=== PATIENT | female | born 1995 | race Caucasian/White ===

== ENCOUNTER 2021-10-19 20:17 | Observation (INO) | payer SELFPAY ==
--- NOTE | ~2021-10-19 | XR_ITS ---
EXAMINATION: XR chest 2V Exam Date/Time: 10/19/2021 22:55 CDT HISTORY: possible foreign body Comparison: None available. RESULT: Lines, tubes, and devices: None. Lungs and pleura: Clear. Cardiomediastinal silhouette: Normal. Other: No acute osseous or upper abdominal finding. IMPRESSION: No acute cardiopulmonary process. No radiopaque foreign body. Reviewed, dictated and finalized at location K.
--- NOTE | ~2021-10-19 | XR_ITS ---
EXAM: XR soft tissue neck DATE: 10/19/2021 23:03 HISTORY: possible foreign body . COMPARISON: None available. FINDINGS: Normal mineralization. No fracture or dislocation. No subcutaneous emphysema. 16 mm linear radiopacity seen best in the AP view projecting over the right lateral vestibule. 6 mm linear opacit y projects over the posterior airway in the lateral view roughly at the level of the superior margin of the aryepiglottic folds (not confidently identified in the AP view. No subcutaneous gas. Lung apic es are clear. IMPRESSION: 2 separate linear radiopacities project over the airway, as described above. Reviewed, dictated and finalized at location K. IMPRESSION: 2 separate linear radiopacities project over the airway, as describ ed above.
[2021-10-19 20:30] VITALS: BP 142/93; PULSE 110; RESP 16; TEMP 36.5; O2SAT 100
--- NOTE | 2021-10-19 23:32 | ED.SKABFB ---
HPI - Skin/Abscess/Foreign Bdy General Chief complaint: Skin/Abscess/Foreign Body <Mary Rayo PA-C - Last Filed: 10/20/21 01:10> Stated complaint: food stuck in throat, no SOB <Mary Rayo PA-C - Last Filed: 10/20/21 01:10> Time Seen by Provider: 10/19/21 22:49 <Mary Rayo PA-C - Last Filed: 10/20/21 01:10> Source: patient <Mary Rayo PA-C - Last Filed: 10/20/21 01:10> Mode of arrival: ambulatory <Mary Rayo PA-C - Last Filed: 10/20/21 01:10> Limitations: no limitations <Mary Rayo PA-C - Last Filed: 10/20/21 01:10> History of Present Illness HPI narrative: This is a 25 year old female that presents to the ER feelings of foreign body in the throat. Reports she was eating some fried chicken tonight at [facility]. She had only taken a couple of bites when she felt like it got stuck in her throat. She has had a constant discomfort since. Reports she has not even been able to tolerate her saliva since. <Mary Rayo PA-C - Last Filed: 10/20/21 01:10> Related Data Allergies/Adverse reactions: Allergies Allergy/AdvReac Type Severity Reaction Status Date / Time azithromycin Allergy Unknown Verified 04/16/14 13:03 <Mary Rayo PA-C - Last Filed: 10/20/21 01:10> Review of Systems Review of Systems: CONSTITUTIONAL: Denies fever ENT: Reports dysphagia <Mary Rayo PA-C - Last Filed: 10/20/21 01:10> All systems reviewed & are unremarkable except as noted in HPI and below <Mary Rayo PA-C - Last Filed: 10/20/21 01:10> [facility] Past Medical History Medical History: Medical History (Updated 10/20/21 @ 01:10 by Mary Rayo PA-C) No active medical problems <Mary Rayo PA-C - Last Filed: 10/20/21 01:10> Social History Social History: Social History (Updated 10/19/21 @ 23:33 by Mary Rayo PA-C) Smoking status: Current every day smoker Tobacco type: e-cigarettes/vaping Alcohol intake: current Drinks per week: 4 Substance use: never Spiritual care concerns: No <Mary Rayo PA-C - Last Filed: 10/20/21 01:10> Exam Narrative: GENERAL: Well-appearing, well-nourished, and in no acute distress. HEAD: Normocephalic, atraumatic. EYES: EOMI. ENT: Nares clear, no rhinorrhea or epistaxis. Mucous membranes moist. Oropharynx without tonsillar hypertrophy exudate or other lesions. Bilateral TMs [place] non-bulging CHEST: No respiratory distress. HEART: Regular rate EXTREMITIES: Normal range of motion. No edema. SKIN: Warm, dry, no rash. NEURO: No focal deficits. Alert and oriented x3. 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 <Benny Talbert MD - Last Filed: 10/20/21 03:18> Consultations Consultation #1: Spoke with Dr. Cho who will come to the ED to evaluate the patient for possible foreign body <Mary Rayo PA-C - Last Filed: 10/20/21 01:10> Date: 10/20/21 <Mary Rayo PA-C - Last Filed: 10/20/21 01:10> Consultation #2: Spoke with hospitalist about patient and work-up who accepts admission <Mary Rayo PA-C - Last Filed: 10/20/21 01:10> Date: 10/20/21 <Mary Rayo PA-C - Last Filed: 10/20/21 01:10> Time: 01:09 <Mary Rayo PA-C - Last Filed: 10/20/21 01:10> Vital Signs Vital signs: Vital Signs Temperature 97.7 F 08/09/22 20:30 Pulse Rate 110 H 10/19/21 20:30 Respiratory Rate 16 10/19/21 20:30 Blood Pressure 142/93 H 10/19/21 20:30 Pulse Oximetry 100 10/19/21 20:30 Temperature 97.1 F L 10/20/21 03:00 Pulse Rate 79 10/20/21 03:00 Respiratory Rate 18 10/20/21 03:00 Blood Pressure 113/58 L 10/20/21 03:00 Pulse Oximetry 100 10/11
[2021-10-19 23:57] LABS: Basophils Absolute Auto 0.1 K/mm3 (0.0-0.1); Basophils Percent Auto 0.9 % (0.2-1.2); Eosinophils Absolute Auto 0.5 K/mm3 (0-0.3); Eosinophils Percent Auto 5.1 % (0-4.4); Hematocrit 43.5 % (37.0-47.0); Hemoglobin 14.6 g/dL (12.0-15.0); Immature Granulocyte Absolute 0.02 K/mm3 (0.00-0.031); Immature Granulocyte Percent A 0.2 % (0-0.5); Lymphocytes Absolute Auto 2.52 K/mm3 (0.9-3.2); Lymphocytes Percent Auto 26.6 % (18.3-44.2); Mean Corpuscular HGB Conc 33.6 g/dl (32-36); Mean Corpuscular Hemoglobin 30.8 pg (26-34); Mean Corpuscular Volume 91.8 fl (80-100); Mean Platelet Volume 9.3 fl (7.4-10.4); Monocytes Absolute Auto 0.7 K/mm3 (0.1-0.6); Monocytes Percent Auto 7.4 % (2.6-8.5); Neutrophils Absolute Auto 5.7 K/mm3 (1.3-6.7); Neutrophils Percent Auto 59.8 % (45.5-73.1); Platelet Count Result 322 k/mm3 (150-375); Red Blood Count 4.74 M/mm3 (4.2-5.4); Red Cell Distribution Width 12.3 % (11.5-14.5); White Blood Count 9.5 K/mm3 (4.5-10.0)
[2021-10-20] VITALS (13 sets, daily range): BP systolic 78–113; BP diastolic 33–87; PULSE 60–79; RESP 16–22; TEMP 36.1–36.2; O2SAT 96–100; BMI 26.8
[2021-10-20 00:15] LABS: Alanine Aminotransferase 11 U/L (6-35); Albumin Level 5.5 g/dL (3.5-5.1); Alkaline Phosphatase 58 U/L (38-126); Anion Gap 15 mmol/L (8-16); Aspartate Amino Transferase 24 U/L (14-36); Bilirubin,Total 0.6 mg/dL (0.2-1.3); Blood Urea Nitrogen 12 mg/dL (7-17); Calcium 9.3 mg/dL (8.4-10.2); Carbon Dioxide 24 mmol/L (22-30); Chloride 102 mmol/L (98-107); Estimated CRCL calculation 77 ml/min; Estimated Glomerular Filt Rate > 60; Glucose 89 mg/dL (65-110); Potassium 3.6 mmol/L (3.4-5.0); Sodium 141 mmol/L (137-145)
--- NOTE | 2021-10-20 00:53 | WPDCN ---
Assessment and Plan Assessment and plan (1) Dysphagia: Code(s): R13.10 - Dysphagia, unspecified Status: Acute Assessment and Plan: No otolaryngologic etiology of dysphagia. Likely neurologic or GI/esophageal etiology. Please call with any questions. HPI Data of Consult Date/Time: 10/20/21 00:53 Requesting Physician: ER Primary Care Provider: STRUCTURAL METAL WORKER PHYSICIAN Consult Narrative Reason for consult: Xray with foreign body Narrative: Nicolette Lindsey is a 25 year old female with history of eating chicken, two bites in, started being unable to swallow. XR demonstrates foreign body. ENT consulted for scope. [facility] Past Medical History Medical History (Updated 10/20/21 @ 00:57 by Elijah Cho MD) No active medical problems Social History Social History (Updated 10/19/21 @ 23:33 by Mary Rayo PA-C) Smoking status: Current every day smoker Tobacco type: e-cigarettes/vaping Alcohol intake: never Meds Home Medications and Allergies Allergies Allergy/AdvReac Type Severity Reaction Status Date / Time azithromycin Allergy Unknown Verified 04/16/14 13:03 Vital Signs Vital Signs - 24 hr 10/19/21 20:30 Temperature 36.5 C Pulse Rate 110 H Respiratory Rate 16 Blood Pressure 142/93 H Pulse Oximetry 100 Exam Narrative: Normal ent exam, some left tm sclerosis see procedure note, scope with some post cricoid edema, and vocal process erythema Results Labs CBC & Chem 7: 10/19/21 23:49 10/19/21 23:49 Labs: Short CBC 10/19/21 Range/Units 23:49 WBC 9.5 (4.5-10.0) K/mm3 Hgb 14.6 (12.0-15.0) g/dL Hct 43.5 (37.0-47.0) % Plt Count 322 (150-375) k/mm3 BMP 10/19/21 23:49 Sodium 141 Potassium 3.6 Chloride 102 Carbon Dioxide 24 BUN 12 Creatinine 0.80 Glucose 89 Calcium 9.3 Liver Function 10/19/21 Range/Units 23:49 Total Bilirubin 0.6 (0.2-1.3) mg/dL AST 24 (14-36) U/L ALT 11 (6-35) U/L Alkaline Phosphatase 58 (38-126) U/L Albumin 5.5 H (3.5-5.1) g/dL [facility] Consult Billing Observation Consult [id number] New Pt Lvl 3 Detail
--- NOTE | 2021-10-20 00:58 | PM.IMHP ---
H&P: HPI History of Present Illness Date/Time: 10/20/21 00:58 Chief Complaint: dysphagia Narrative: This is a 25-year-old female with no significant past medical history patient presents to the emergency room after having difficulty swallowing solids states that she has been able to get it to pass however not this time were she had been trying to pass a piece of chicken but feels that is stocking her throat. Patient denies any heartburn, any nausea, any vomiting, any weight loss, she is able to swallow liquids. Preliminary workup in the emergency room was significant for soft tissue of the neck x-ray with 2 separate linear radiopacities project over the airway, as described above, chest x-ray with no acute cardiopulmonary process. No radiopaque foreign body. chemistry panel and CBC were unrevealing. Patient has been spitting her own secretions to get comfortable. Will be admitted for further evaluation, management and treatment. Review of Systems Review of Systems: Dysphagia Constitutional: Constitutional: Denies chills, Denies fatigue, Denies fever(s), Denies lethargy, Denies malaise, Denies night sweats, Denies poor appetite, Denies weakness and Denies weight loss Eyes: Eyes: Denies change in vision ENT: Reports dysphagia, Denies vertigo, Denies dizziness, Denies hoarseness, Denies odynophagia and Denies sore throat Cardiovascular: Cardiovascular: Denies syncope, Denies irregular heart rhythm, Denies lightheadedness, Denies palpitations and Denies dyspnea on exertion Respiratory: Respiratory: Denies chest congestion, Denies cough, Denies excessive phlegm production and Denies dyspnea Gastrointestinal: Gastrointestinal: Denies abdominal pain, Denies dyspepsia, Denies heartburn, Denies diarrhea, Denies nausea and Denies vomiting Genitourinary: Genitourinary: Denies dysuria Musculoskeletal: Musculoskeletal: Denies myalgias, Denies arthralgias and Denies neck pain Integumentary/Breasts: Skin/Breast: Denies rash Neurologic: Denies vertigo, Denies dizziness, Denies focal weakness and Denies Sensory deficit (Neuro) Psychiatric: Psychiatric: Reports no additional psychiatric complaints and Reports as per HPI Endocrine: Endocrine: Denies cold intolerance, Denies flushing, Denies heat intolerance, Denies polyphagia, Denies polydipsia and Denies palpitations Hematologic/Lymphatic: Hematologic/Lymphatic: Reports no additional hematologic/lymphatic complaints and Reports as per HPI Allergic/Immunologic: Allergic/Immunologic: Reports no additional allergic/immunologic complaints and Reports as per HPI [facility] Past Medical History Medical History (Updated 10/20/21 @ 05:13 by Lexi Lovelace MD) Dysphagia No active medical problems Social History Social History (Updated 10/19/21 @ 23:33 by Mary Rayo PA-C) Smoking status: Current every day smoker Tobacco type: e-cigarettes/vaping Alcohol intake: current Drinks per week: 4 Substance use: never Spiritual care concerns: No Meds Home Medications and Allergies Home Medications Medication Instructions Recorded Confirmed Type No Home Medications 10/20/21 10/20/21 History Allergies Allergy/AdvReac Type Severity Reaction Status Date / Time azithromycin Allergy Unknown Unknown Verified 10/20/21 04:32 Sulfa (Sulfonamide Allergy Rash Verified 10/20/21 04:32 Antibiotics) Vital Signs Vital Signs - 24 hr 10/19/21 20:30 Temperature 97.7 F Pulse Rate 110 H Respiratory Rate 16 Blood Pressure 142/93 H Pulse Oximetry 100 Exam Const: General: comfortable, no acute distress, well developed, alert and awake Nutritional Appearance: average body habitus Orientation/consciousness: patient oriented x3 Other: well-appearing HENMT: Head: normal to inspection, normocephalic and atraumatic Ears: hearing grossly normal bilaterally Face and sinus: normal facial exam Eyes: General: appearance normal, both eyes and all related structur
--- NOTE | 2021-10-20 01:00 | WPDPROCEDUR ---
Procedures Laryngoscopy Laryngoscopy Comments: Afrin and lidocaine applied to the right nasal passage. Scope passed, no foreign bodies, completely normal exam, mild post cricoid edema, vocal process erythema, patient tolerated the procedure well.
[2021-10-20] MEDS: SODIUM CHLORIDE 0.9% IV 1,000 ML 125 ML IV CONT ×2 (01:16→08:55)
--- NOTE | 2021-10-20 02:47 | ADMGEN ---
This patient, Nicolette Lindsey, was admitted to 2 Medical Room 261-01. Patient/family oriented to hospital policies and general routines including ID bracelet, bed and alarms, visiting hours, pain management, procedures, bathroom and other care routines, personal items, smoking policy, room service/diet, and visiting hours. Information on how to activate the Rapid Response Team has been discussed. Patient/Family are encouraged to report perceived risks to care and to ask questions if they do not understand what they are told or what they should do.
--- NOTE | 2021-10-20 06:23 | WPDGICN ---
Assessment and Plan Assessment and plan (1) Dysphagia: Qualifiers: Dysphagia type: unspecified Qualified Code(s): R13.10 - Dysphagia, unspecified Code(s): R13.10 - Dysphagia, unspecified Status: Acute Assessment and Plan: EGD with possible biopsy or dilatation or cautery, or removal of foreign body. I explained her that sometimes removal of foreign body can be very difficult and could result in injury to the esophagus including bleeding or tear. This could result in her needing to be in the hospital longer or on antibiotics. The probability of knee surgery is very rare however. The differential is either esophageal stricture or eosinophilic esophagitis GI Consult Note Consult date/time: 10/20/21 [id number] female presented to the emergency room with a sensation of foreign body. Reason for consult: dysphagia HPI: Nicolette Lindsey is a 25 year old female Who was eating chicken and felt that something got caught in her throat. She tried drinking water which would not go down and came back up. Later she felt as though the chicken move down a bit. She has not tried drinking anything during the night. She denies chest pain. She has had no abdominal pain. She states that she has noticed sometimes time things are going down slowly when she eats, but usually this is very brief. Is usually something solid like meat or bread. She does not have chronic heartburn or other gastrointestinal complaints. She is on no medications. Her weight is stable. She denies any chronic abdominal pain Review of Systems Review of Systems: All systems reviewed & are unremarkable except as noted in HPI and below PMFSH Past Medical History Medical History Dysphagia No active medical problems Social History Social History Smoking status: Current every day smoker Tobacco type: e-cigarettes/vaping Alcohol intake: current Drinks per week: 4 Substance use: never Spiritual care concerns: No Meds Home Medications and Allergies Home Medications Medication Instructions Recorded Confirmed Type No Home Medications 10/20/21 10/20/21 History Allergies Allergy/AdvReac Type Severity Reaction Status Date / Time azithromycin Allergy Unknown Unknown Verified 10/20/21 04:32 Sulfa (Sulfonamide Allergy Rash Verified 10/20/21 04:32 Antibiotics) Vital Signs Vital Signs - 24 hr 10/19/21 20:30 10/20/21 02:45 10/20/21 03:00 Temperature 36.5 C 36.2 C L Pulse Rate 110 H 79 Respiratory Rate 16 18 Blood Pressure 142/93 H 113/58 L Pulse Oximetry 100 100 Oxygen Delivery Room Air 10/20/21 00:38 10/20/21 00:45 10/20/21 01:00 Temperature Pulse Rate Respiratory Rate Blood Pressure 113/87 Pulse Oximetry 99 98 98 Oxygen Delivery 10/20/21 01:01 10/20/21 01:22 10/20/21 01:30 Temperature Pulse Rate Respiratory Rate Blood Pressure Pulse Oximetry 98 96 98 Oxygen Delivery 10/20/21 01:45 10/20/21 02:05 10/20/21 04:59 Temperature 36.1 C L Pulse Rate 60 Respiratory Rate 16 Blood Pressure 96/51 L Pulse Oximetry 98 99 100 Oxygen Delivery Exam Const: General: alert Orientation/consciousness: patient oriented x3 Resp: Auscultation: clear to auscultation bilaterally Cardio: Rhythm: regular rhythm GI: GI Palp: Yes Soft to palpation and No Tenderness to palpation present (GI) Neuro: General: patient oriented x3 Results Labs CBC & Chem 7: 10/19/21 23:49 10/19/21 23:49 Labs: Short CBC 10/19/21 Range/Units 23:49 WBC 9.5 (4.5-10.0) K/mm3 Hgb 14.6 (12.0-15.0) g/dL Hct 43.5 (37.0-47.0) % Plt Count 322 (150-375) k/mm3 [facility] 10/19/21 23:49 Sodium 141 Potassium 3.6 Chloride 102 Carbon Dioxide 24 BUN 12 Creatinine 0.80 Glucose 89 Calcium 9.3 L
[2021-10-20] MEDS: LACTATED RINGERS 1,000 ML 150 ML IV CONT (09:25)
--- NOTE | 2021-10-20 09:52 | WPDANESEPPF ---
Anes - Initial Pre Proc Eval Procedure: Operation Date: 10/20/21 12:30 Proposed Procedures p Esophagogastroduodenoscopy - Thom Allen MD Date/Time: 10/20/21 09:52 Surgeon: Lexi Lovelace MD Pre Op Diagnosis: Dysphagia Patient Data Age: 25 Gender: F Height: 1.6 m Weight: 68.7 kg Last Vital Signs Temp 96.9 F L 10/20/21 04:59 Pulse 60 10/20/21 04:59 Resp 16 10/20/21 04:59 BP 96/51 L 10/20/21 04:59 Pulse Ox 100 10/20/21 04:59 O2 Del Method Room Air 10/20/21 08:00 Allergies Allergy/AdvReac Type Severity Reaction Status Date / Time azithromycin Allergy Unknown Unknown Verified 10/20/21 09:10 Sulfa (Sulfonamide Allergy Rash Verified 10/20/21 09:10 Antibiotics) Home Medications Medication Instructions Recorded Confirmed Type No Home Medications 10/20/21 10/20/21 History Laboratory Tests 10/19/21 10/19/21 23:49 23:49 WBC 9.5 K/mm3 K/mm3 (4.5-10.0) RBC 4.74 M/mm3 M/mm3 (4.2-5.4) Hgb 14.6 g/dL g/dL (12.0-15.0) Hct 43.5 % % (37.0-47.0) MCV 91.8 fl fl (80-100) MCH 30.8 pg pg (26-34) MCHC 33.6 g/dl g/dl (32-36) RDW 12.3 % % (11.5-14.5) Plt Count 322 k/mm3 k/mm3 (150-375) MPV 9.3 fl fl (7.4-10.4) Immature Gran % (Auto) 0.2 % % (0-0.5) Neut % (Auto) 59.8 % % (45.5-73.1) Lymph % (Auto) 26.6 % % (18.3-44.2) [place] % (Auto) 7.4 % % (2.6-8.5) Eos % (Auto) 5.1 % H % (0-4.4) Baso % (Auto) 0.9 % % (0.2-1.2) Lymph # (Auto) 2.52 K/mm3 K/mm3 (0.9-3.2) [place] # (Auto) 0.7 K/mm3 H K/mm3 (0.1-0.6) Eos # (Auto) 0.5 K/mm3 H K/mm3 (0-0.3) Baso # (Auto) 0.1 K/mm3 K/mm3 (0.0-0.1) Abs Immat Gran (auto) 0.02 K/mm3 K/mm3 (0.00-0.031) Absolute Neuts (auto) 5.7 K/mm3 K/mm3 (1.3-6.7) Absolute Nucleated RBC 0.0 K/mm3 K/mm3 (0.0-0.012) Nucleated RBC % 0.0 % % (0.0-0.2) Sodium 141 mmol/L mmol/L (137-145) Potassium 3.6 mmol/L mmol/L (3.4-5.0) Chloride 102 mmol/L mmol/L (98-107) Carbon Dioxide 24 mmol/L mmol/L (22-30) Anion Gap 15 mmol/L mmol/L (8-16) BUN 12 mg/dL mg/dL (7-17) Creatinine 0.80 mg/dL mg/dL (0.7-1.0) Estim Creat Clear Calc 77 ml/min ml/min Estimated GFR > 60 (59 - ) Glucose 89 mg/dL mg/dL (65-110) Calcium 9.3 mg/dL mg/dL (8.4-10.2) Total Bilirubin 0.6 mg/dL mg/dL (0.2-1.3) AST 24 U/L U/L (14-36) ALT 11 U/L U/L (6-35) Alkaline Phosphatase 58 U/L U/L (38-126) Total Protein 9.0 g/dL H g/dL (6.3-8.2) Albumin 5.5 g/dL H g/dL (3.5-5.1) Patient hx anesthesia problems: none Family hx anesthesia problems: none Results Review: All pre-operative results and documents have been reviewed as part of the pre-operative evaluation. [facility] Past Medical History Medical History Dysphagia No active medical problems Social History Social History Smoking status: Current every day smoker Tobacco type: e-cigarettes/vaping Alcohol intake: current Drinks per week: 4 Substance use: never Spiritual care concerns: No Anes - Eval Final PreProcedure Day of Procedure 10/20/21 09:52 Patient weight: normal Heart: regular rate and rhythm Lungs: clear to auscultation Airway: Mallampati scale class II Neurological: alert and oriented Last oral intake: >/= 8 hours ASA classification: II Emergent: no Anesthetic plan: proceed Anesthesia type and monitoring: general GIVS and standard monitoring Results Review: All pre-operative results and documents have been reviewed as part of the pre-operative evaluation. Informed Consent: The patient's anesthetic plan and its attendant risks and benefits were discussed with the patie
--- NOTE | 2021-10-20 11:20 | PM.DS ---
DS: Admitting Diagnosis Discharge Date 10/20/21 Admitting Diagnosis dysphagia DS: Discharge Diagnosis Discharge Diagnosis (1) Dysphagia: Qualifiers: Dysphagia type: unspecified Qualified Code(s): R13.10 - Dysphagia, unspecified Code(s): R13.10 - Dysphagia, unspecified Status: Acute Assessment and Plan: Monitor serum electrolytes, CBC, hemoglobin/hematocrit q.8 hours. If hemoglobin drops below 7 transfuse packed red blood cells Monitor for bloody bowel movements,chest pain,SOB or dizziness/lightheadedness GI consult, appreciate assistance and recommendations. EGD was performed on 10/20/2021 Diet: NPO supportive care DS: Summary Hospital Course Reason for hospitalization: dysphagia Hospital Course: patient is a 25-year-old female no past medical history. Patient presented to [place] [facility] after having difficulty swallowing solids. She reportedly was unable to pass food without having choking episodes with vomiting. Patient denies any heartburn or persistent nausea the emergency department. She denies any recent weight loss. Patient reports that she has been able to swallow liquids without difficulty. While in the emergency department labs and imaging were obtained. Soft tissue neck x-ray revealed 2 separate linear radiopacity projected over the airway and the chest x-ray did not reveal acute cardiopulmonary process. CMP and CBC were unrevealing. Due to the findings of the soft tissue neck gastroenterology was consulted. The patient was made NPO and scheduled for an EGD on 10/20/2021. Upon admission to the floor the patient was made NPO, provided IV fluids and supportive care until an EGD could be performed. EGD was performed which were found to strictures which required dilatation. See op note. Upon return to the floor the patient did not have significant complaints and was ready for discharge. Status at Discharge Functional status at discharge: independent ambulation Overall status at discharge: patient is back to baseline Time Spent with Patient Time attestation: Total time spent providing and/or coordinating discharge services: Exam Const: General: comfortable, no acute distress, well developed, alert and awake Nutritional Appearance: average body habitus Orientation/consciousness: patient oriented x3 Other: well-appearing HENMT: Head: normal to inspection, normocephalic and atraumatic Ears: hearing grossly normal bilaterally Face and sinus: normal facial exam Eyes: General: appearance normal, both eyes and all related structures Pupils: Equal, round and reactive pupils present EOM: EOMs intact bilaterally Neck: Neck: full ROM, no lymphadenopathy and no JVD Thyroid: thyroid normal Lymphatic: no lymphadenopathy noted Resp: Effort & Inspection: normal respiratory effort and able to speak in complete sentences Auscultation: clear to auscultation bilaterally Cardio: Jugular venous distension: no JVD Rate: regular rate Rhythm: regular rhythm Heart sounds: S1 normal heart sound present and S2 normal heart sound present : General: Yes deferred Skin: Rashes: no rashes Wounds: no wounds Neuro: General: patient oriented x3 and CN's II-XI intact bilaterally Cranial nerves: Yes CN's II-XII intact bilaterally and Yes Equal, round and reactive pupils present Cognition (Neuro): normal cognition Speech: normal speech Gait exam (Neuro): Normal gait present Motor exam (neuro): 5/5 motor strength present throughout Sensory Exam: No Sensory deficit (Neuro) Extrem: General: normal to inspection, full ROM, no joint enlargement and no pedal edema DS: Data Data Completed and Pending Pending studies at discharge: Pending at discharge 10/20/21 10:45 Surgical [PTH] Routine Labs on day of discharge: Labs from last 24 hours 10/19/21 10/19/21 23:49 23:49 WBC 9.5 RBC 4.74 Hgb 14.6 Hct 43.5 MCV 91.8 MCH 30.8 MCHC 33.6 RDW 12.3
== END 2021-10-20 13:38 | disposition home or self-care (01) ==
LOC: ANHED 10-20 01:10 → ANH2MED 10-20 03:21
PROVIDERS: Internal Medicine Gastroenterology; Physician Assistant; Admitting Provider Internal Medicine; Emergency Provider Emergency Medicine; Visit Provider Nurse Practitioner Family
PROC: 0DJ08ZZ Inspection of Upper Intestinal Tract, Via Natural or Artificial Opening Endoscopic (ICD-10-PCS; CPT 43235; principal; 2021-10-20 12:30)
DX: K22.2 Esophageal obstruction (principal); F17.290 Nicotine dependence, other tobacco product, uncomplicated
CPT/HCPCS: 31575; 43249; 36415; 70360; 71046; 80053; 85025; 88305; 96360; 96361; 99285; C1726; G0378; J2704; J7030; J7120

== ENCOUNTER 2023-11-28 02:46 | Day surgery (SDC) | payer OTHER, SELFPAY ==
[2023-11-22 15:41] VITALS: BMI 21.2
--- NOTE | 2023-11-22 15:48 | PC.NURSE ---
Patient's name is Nicolette M Javier. César was her maiden name. Report to the Outpatient Waiting Room, entrance under the green pavilion located off [facility], at time _0600_ on date _[id number]_. Planned Procedure Time: _0730_.? Time changes happen often and if your time is changed the preop area will call you the afternoon before. - You and your visitor will be asked to self-screen and do not enter if you have any COVID symptoms. Please call surgeon if you need to reschedule. - A mask is optional within the hospital at this time. Patients may have clear liquids (water, carbonated beverages, clear teas, apple juice) until 3 hours prior to surgery with a maximum of 20 ounces. - No food from midnight until time of surgery and no smoking Take only the following medications with a SIP of water on the morning of surgery: ____None DO NOT STOP ANY OF YOUR OTHER PRESCRIPTION MEDICATIONS PRIOR TO SURGERY EXCEPT THE FOLLOWING Medications to discontinue per physician None Please no make-up, nail turkish, hairspray, perfume, deodorant, or body powder the day of surgery.? No jewelry (including any body piercings) or valuables the day of surgery, leave them at home.? Please take a shower or bath the night before, or the morning of, surgery with an antibacterial soap.? Wear comfortable, loose fitting clothing.? - Jewelry must be removed prior to entering the operating room.? Rings and piercings that are not removed may be cut off. - The hospital will not accept responsibility for valuables.? - Please leave all valuables, including medications, at home the day of surgery. If you are going home after surgery, a licensed parcel post truck driver must drive you home.? - NO public transportation without another adult if you receive anesthesia. - We recommend that an adult stay with you for 24 hours following discharge. - We also recommend that you do not drive, make important decision, drink alcoholic beverages, or take any drugs that were not prescribed by your health care provider for at least 24 hours after your discharge time. Follow any additional instructions given to you from your surgeon. Telephone instructions given to __Nicolette___and asked if any additional questions and then verbalized understanding. Patient advised to call surgeon office or pre surgery nurse liaison [phone] if any additional questions.
[2023-11-28] VITALS (12 sets, daily range): BP systolic 91–117; BP diastolic 58–82; PULSE 46–90; RESP 10–24; TEMP 36.6–36.7; O2SAT 94–100; BMI 20.7
[2023-11-28] MEDS: LACTATED RINGERS 1,000 ML 30 ML IV CONT (06:50)
[2023-11-28] MEDS: ACETAMINOPHEN 500 MG TABLET 1000 MG PO (07:00)
[2023-11-28] MEDS: KETOROLAC 15 MG/ML VIAL (*BKC) IV PUSH (07:00)
--- NOTE | 2023-11-28 07:12 | PM.IMHP ---
H&P: HPI History of Present Illness Date/Time: 11/28/23 07:12 Chief Complaint: Pelvic pain Narrative: this patient is a 27-year-old female who presents for pelvic pain and ultrasound follow-up. We reviewed her ultrasound results in detail. I shared images with her. We talked about the hemorrhagic cyst. Talked about the etiology, natural history, treatment of cyst. Talked about the specific features of her cyst and what their significance were in terms of healing, treatment, potential complications. We talked about her pelvic pain history. She has a long pelvic pain history this started in her teens. Became progressively worse over time. Started out as dysmenorrhea and evolved in 2 pain that extended outside the menstrual. . She developed pain with intercourse. She has a strong story for endometriosis. Talked about endometriosis. Talked about the etiology, natural history, treatment and complications of endometriosis. We spent over 40 minutes [id number] I spent over 40 minutes and total on her care. We agreed to treat with diagnostic laparoscopy and possible adjunct medical treatment. we have agreed to proceed with diagnostic laparoscopy and ovarian cystectomy. The patient understands the details of the procedure. The procedure has been explained in detail. She understands the risks. She understands that injuries may occur that result in hospitalization, more surgery, and severe illness. She understands risk of hemorrhage and infection. She denies any chest pain or shortness of breath. She denies any nausea, vomiting, fever, chills. Review of Systems Review of Systems: All systems reviewed & are unremarkable except as noted in HPI and below Constitutional: Constitutional: Denies chills, Denies fatigue, Denies fever(s) and Denies weakness Eyes: Eyes: Denies blurry vision, Denies change in vision, Denies loss of peripheral vision, Denies loss of vision, Denies other visual disturbances and Denies eye pain ENT: Denies vertigo, Denies dizziness, Denies hearing loss, Denies mouth pain, Denies nasal obstruction, Denies neck mass and Denies neck pain Cardiovascular: Cardiovascular: Denies chest pain, Denies diaphoresis, Denies syncope, Denies leg edema and Denies dyspnea Respiratory: Respiratory: Denies chest congestion, Denies cough, Denies hemoptysis, Denies dyspnea and Denies wheezing Gastrointestinal: Gastrointestinal: Denies abdominal pain, Denies constipation, Denies diarrhea, Denies nausea and Denies vomiting Genitourinary: Genitourinary: Denies hematuria, Denies change in libido, Denies nocturia, Denies genital lesions, Denies flank pain and Denies urinary urgency Musculoskeletal: Musculoskeletal: Denies abnormal gait, Denies back pain, Denies myalgias, Denies arthralgias, Denies joint swelling, Denies muscle weakness and Denies neck pain Integumentary/Breasts: Skin/Breast: Denies swelling, Denies breast pain, Denies breast mass, Denies dry skin, Denies nipple discharge, Denies unusual bruising and Denies jaundice Neurologic: Denies Neuro-related abnormal movements, Denies Abnormal speech present, Denies abnormal gait, Denies behavioral changes, Denies confusion, Denies vertigo, Denies dizziness, Denies syncope, Denies loss of vision, Denies memory loss, Denies convulsions and Denies weakness Psychiatric: Psychiatric: Denies abnormal sleep pattern, Denies behavioral changes, Denies change in libido, Denies confusion, Denies depression, Denies anhedonia and Denies memory loss Endocrine: Endocrine: Reports no additional endocrine complaints, Denies change in libido and Denies fatigue Hematologic/Lymphatic: Hematologic/Lymphatic: Reports no additional hematologic/lymphatic complaints Allergic/Immunologic: Allergic/Immunologic: Reports no additional allergic/immunologic complaints and Denies wheezing PMFSH Past Medical History Medical History Dysphagia No active medical problems Soc
--- NOTE | 2023-11-28 07:14 | WPDANESEPPF ---
Anes - Initial Pre Proc Eval Procedure: Operation Date: 11/28/23 07:30 Proposed Procedures p Diagnostic Laparoscopy, Left Ovarian Cystectomy - Audi Castillo MD Date/Time: 11/28/23 07:14 Surgeon: Audi Castillo MD Pre Op Diagnosis: pelvic pain Patient Data Age: 27 Gender: F Height: 1.6 m Weight: 53.25 kg Allergies Allergy/AdvReac Type Severity Reaction Status Date / Time azithromycin Allergy Unknown Unknown Verified 11/28/23 06:27 Sulfa (Sulfonamide Allergy Rash Verified 11/28/23 06:27 Antibiotics) Home Medications Medication Instructions Recorded Confirmed Type No Home Medications 11/22/23 11/22/23 History Patient hx anesthesia problems: none Family hx anesthesia problems: none Results Review: All pre-operative results and documents have been reviewed as part of the pre-operative evaluation. [facility] Past Medical History Medical History Dysphagia No active medical problems Social History Social History Smoking status: Current every day smoker Tobacco type: e-cigarettes/vaping Alcohol intake: current Drinks per week: 2 Substance use: never Living arrangements: with family Spiritual care concerns: No Anes - Eval Final PreProcedure Day of Procedure 11/28/23 07:14 Patient weight: normal Heart: regular rate and rhythm Lungs: clear to auscultation Airway: Mallampati scale class II Neurological: alert and oriented Last oral intake: >/= 8 hours ASA classification: II Emergent: no Anesthetic plan: proceed Anesthesia type and monitoring: general ETT and standard monitoring Results Review: All pre-operative results and documents have been reviewed as part of the pre-operative evaluation. Informed Consent: The patient's anesthetic plan and its attendant risks and benefits were discussed with the patient/family/POA. Questions were solicited and answers provided to the satisfaction of the patient/family/POA.
--- NOTE | 2023-11-28 07:15 | WPDHPUPDATE1 ---
History and Physical Update Update Date/Time: 11/28/23 07:15 History and Physical has been reviewed, including an updated exam of the patient. There are NO changes in the patient's condition. Risks, benefits, and alternatives have been discussed and questions answered. Patient agrees to proceed with procedure.
[2023-11-28 07:22] LABS: BEDSIDEPREGUCG Negative (Negative)
[2023-11-28] MEDS: fentaNYL CITRATE INJ (*CRX) 100 MCG/2 ML VIAL 25 MCG IV PUSH ×5 (08:35→09:20)
--- NOTE | 2023-11-28 08:39 | W.PM.PROC2 ---
Procedure Note - Detailed Date of Procedure 11/28/23 Pre-op Diagnosis pelvic pain, ovarian cyst Post-op Diagnosis Same Procedure Performed Diagnostic laparoscopy, left ovarian cystectomy Surgeon Audi Castillo MD Anesthesia General Indications Pelvic pain Findings 3 cm complex left ovarian cyst. Otherwise normal pelvic female genital tract. Description of Procedure The patient was taken to the operating room. She was prepped and draped in the dorsal lithotomy position after induction general anesthesia. A 5 mm incision was made with a scalpel on the abdominal skin in the left upper quadrant of the abdomen. A 5 mm trocar was inserted into the intra-abdominal cavity under direct visualization the scope. In the same fashion a 5 mm left lower quadrant trocar was inserted and a 5 mm infraumbilical trocar was inserted. left ovarian cystectomy was performed using sharp and blunt dissection. Cautery was used along with LigaSure. It was then wrapped in Interceed. The pelvis was irrigated. The pneumoperitoneum was reduced. The trocars were removed. Skin was closed with subcuticular 4 micro. The patient's incisions were covered with Dermabond. She was taken recovery room in stable condition. Sponge lap and needle counts were correct x2. Estimated Blood Loss 15 Complications No immediate complications Condition Stable Disposition Same day
[2023-11-28] MEDS: oxyCODONE HCL (*CRX) 5 MG TAB IR PO (10:15)
[2023-11-28] MEDS: ONDANSETRON INJ 4 MG/2 ML VIAL IV PUSH (10:33)
[2023-11-28] MEDS: SCOPOLAMINE 1 MG PATCH 1 PATCH TRANSDERM (11:24)
[2023-11-28] MEDS: diphenhydrAMINE HCl INJ 50 MG/ML VIAL 25 MG IV PUSH (11:24)
== END 2023-11-28 12:02 | disposition home or self-care (01) ==
PROVIDERS: PCP Registered Nurse; Visit Provider Obstetrics & Gynecology
PROC: (CPT 49320; principal; 2023-11-28 07:30)
DX: N83.202 Unspecified ovarian cyst, left side (principal); F17.290 Nicotine dependence, other tobacco product, uncomplicated
CPT/HCPCS: 58662; 88305; A9270; J1100; J1200; J1596; J1885; J2250; J2270; J2405; J2704; J2710; J3010; J7030; J7120

== ENCOUNTER 2024-07-20 10:52 | Emergency (ER) | payer OTHER, SELFPAY ==
--- NOTE | ~2024-07-20 | US_ITS ---
EXAMINATION: US pelvic complete DATE: 07/20/2024 13:24 INDICATION: Ovarian torsion TECHNIQUE: Multiple transabdominal sonographic images of the pelvis were obtained. COMPARISON: None. FINDINGS: The uterus measures 8.4 x 3.9 x 5.2 cm. The endometrial complex measures 14 mm in thickness. The rig ht ovary measures 2.6 x 2.5 x 1.5 cm. The left ovary measures 7.0 x 6.1 x 5.6 cm. There is a 5.7 x 4. 8 x 4.6 cm complex hypoechoic cyst in the left ovary with lacelike pattern of numerous echogenic sept i most consistent with a hemorrhagic cyst. Vascular flow identified at both ovaries on color Doppler. There is a small amount of anechoic free fluid in the cul-de-sac and about the right ovary. IMPRESSION: 1. Complex 5.7 cm likely likely hemorrhagic cyst in the left ovary. Consider 08/18/2011 week follow-up ultrasound to document resolution. 2. Small amount of anechoic free fluid in the cul-de-sac and about the left adnexa. Reviewed, dictated and finalized at location A. IMPRESSION: 1. Complex 5.7 cm likely likely hemorrhagic cyst in the left ovary. Consider 08/18/2011 week follow-up ultrasound to document resolution. 2. Small amount of anechoic free fluid in the cul-de-sac and about the left adn exa.
--- NOTE | ~2024-07-20 | CT_ITS ---
EXAMINATION: CT abdomen pelvis w con DATE: 07/20/2024 11:54 INDICATION: Lower abdominal pain TECHNIQUE: Computed tomography (CT) of the abdomen and pelvis was performed with 100 mL Omnipaque-350 intravenous contrast. Automated exposure control and iterative reconstruction technique were employe d. The dose-length product was 210.66 mGy-cm. COMPARISON: None FINDINGS: Lung bases are clear. Heart size is normal. No pericardial or pleural effusion. Liver, gallbladder, s pleen, pancreas, bilateral adrenal glands and kidneys are normal. Bowels including the appendix are n ormal. Bladder, anteverted uterus and right adnexa are unremarkable. 6.4 cm left adnexal cyst. There is small amount of fluid in the cul-de-sac with greater than simple fluid attenuation consistent with hemoperitoneum. No pathologically enlarged abdominal or pelvic lymphadenopathy. Bones are unremarkab le. IMPRESSION: 1. Nonspecific small amount of complex ascites, potential pneumoperitoneum in the cul-de-sac. 2. 6.4 similar left adnexal cyst. Reviewed, dictated and finalized at location A. IMPRESSION: 1. Nonspecific small amount of complex ascites, potential pneumoperitoneum in t he cul-de-sac. 2. 6.4 similar left adnexal cyst.
--- OUTSIDE RECORDS SUMMARY | 2024-07-20 10:54 | XMS_ITS | Clinical Summary ---
Author Organization [facility] Address [address] [address] Care Team Providers Care Deburr Technician Name Role Phone Unavailable Primary Care Provider Unavailabl e Source Comments [facility],non-owned Affiliates and Associated Physician Practices is amultiple site organization consisting of ambulatory clinics and hospital sitesin [place], [place], [place] and [place]. This disclosure is being madepursuant to the Care Everywhere program and may not contain all information available regarding this patient. 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 Gender Identity Not on file Sexual Orientation Not on file Plan of Treatment Health Maintenance Due Date Last Done Comments PAP SMEAR 1995 HIV SCREENING 12/04/2010 HEPATITIS C SCREENING 11/30/2013 HEPATITIS B VACCINE (1 of 3 - 19+ 3-dose series) 12/04/2014 COVID-19 VACCINE ( - 2023-2 5 season) 2023 DEPRESSION SCREENING 03/13/2024 INFLUENZA VACCINE (Season Ended) 2024 DTAP/TDAP/TD VACCINES (2 - T d or Tdap) 01/16/2027 01/16/2017 ZOSTER VACCINE (1 of 2) 12/04/2045 HIB VACCINE Aged Out No longer eligi ble based on patient's age to complete this topic HPV VACCINE Aged Out No longer eligi ble based on patient's age to complete this topic MENINGOCOCCAL (Group B) VACC INE SHARED DECISION-MAKING Aged Out No longer eligibl e based on patient's age to complete this topic MENINGOCOCCAL GROUPS A/C/Y/W VACCINE Aged Out No longer eligible b ased on patient's age to complete this topic PNEUMOCOCCAL VACCINE Aged Out No long er eligible based on patient's age to complete this topic Insurance [facility] MEDICAID - OUT OF STATE [facility]
[2024-07-20 10:59] VITALS: BP 103/57; PULSE 74; RESP 16; TEMP 37; O2SAT 100
[2024-07-20 11:22] LABS: BEDSIDEPREGUCG Negative (Negative)
[2024-07-20 11:28] LABS: Basophils Absolute Auto 0.1 K/mm3 (0.0-0.1); Basophils Percent Auto 0.5 % (0.2-1.2); Eosinophils Absolute Auto 0.2 K/mm3 (0-0.3); Eosinophils Percent Auto 1.4 % (0-4.4); Hematocrit 39.3 % (37.0-47.0); Immature Granulocyte Absolute 0.07 K/mm3 (0.00-0.031); Immature Granulocyte Percent A 0.6 % (0-0.5); Lymphocytes Absolute Auto 1.42 K/mm3 (0.9-3.2); Lymphocytes Percent Auto 11.4 % (18.3-44.2); Mean Corpuscular HGB Conc 33.1 g/dl (32-36); Mean Corpuscular Hemoglobin 30.7 pg (26-34); Mean Corpuscular Volume 92.7 fl (80-100); Mean Platelet Volume 9.5 fl (7.4-10.4); Monocytes Percent Auto 8.1 % (2.6-8.5); Neutrophils Absolute Auto 9.7 K/mm3 (1.3-6.7); Platelet Count Result 308 k/mm3 (150-375); Red Blood Count 4.24 M/mm3 (4.2-5.4); Red Cell Distribution Width 11.8 % (11.5-14.5); White Blood Count 12.4 K/mm3 (4.5-10.0)
--- NOTE | 2024-07-20 11:28 | ED.ABDPAIN ---
HPI - Abdominal Pain General Chief Complaint: Abdominal Pain Stated Complaint: lower abd. pain Time Seen by Provider: 07/20/24 11:27 Source: patient History of Present Illness HPI narrative: 28 YEARS OLD WHITE FEMALE CAME TO THE ED WITH PAIN ACROSS THE LOWER ABDOMEN STARTED THIS MORNING, SHARP, STABBING, RADIATING TO HER STOMACH. WORSE WITH STRETCHING, STANDING, BETTER BENDING OVER. SHE DENIES ANY FEVER CHILLS NAUSEA VOMITING VAGINAL BLEEDING OR DISCHARGE. HISTORY OF OVARIAN CYST REMOVAL ON 2023. PATIENT DENIES HISTORY OF ABDOMINAL SURGERY. Related Data Allergies Allergy/AdvReac Type Severity Reaction Status Date / Time azithromycin Allergy Unknown Unknown Verified 07/20/24 11:20 Sulfa (Sulfonamide Allergy Rash Verified 07/20/24 11:20 Antibiotics) Review of Systems Review of Systems: All systems reviewed & are unremarkable except as noted in HPI and below PMFSH Past Medical History Medical History Dysphagia No active medical problems Social History Social History Smoking status: Current every day smoker Tobacco type: e-cigarettes/vaping Alcohol intake: current Drinks per week: 2 Substance use: never Living arrangements: with family Spiritual care concerns: No Exam Narrative: GENERAL APPEARANCE: WELL-DEVELOPED, WELL-NOURISHED SKIN: NORMAL COLOR HEAD: NORMOCEPHALIC, NONTRAUMATIC EYES: CLEAR CONJUNCTIVA ENT: OROPHARYNX NORMAL, EARS NORMAL, NOSE NORMAL NECK: SUPPLE, NONTENDER CHEST AND RESPIRATORY: AIRWAY PATENT, NO RESPIRATORY DISTRESS, NO ACCESSORY MUSCLE USE HEART: REGULAR RATE/RHYTHM ABDOMEN: SEVERE DIFFUSE TENDERNESS MAINLY RIGHT LOWER QUADRANT, GUARDING, REBOUND,, NO ORGANOMEGALY, QUIET BOWEL SOUNDS VASCULAR: NORMAL PERIPHERAL PULSES, NORMAL CAPILLARY REFILL. 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 INSULATION IS NORMAL TESTED, NO GROSS MOTOR DEFICIT Course Consultations Consultation #1: DR HANNAH OUTPATIENT FOLLOW-UP Date: 07/20/24 Time: 14:43 Vital Signs Vital signs: Vital Signs Temperature 37.0 C 07/20/24 10:59 Pulse Rate 74 07/20/24 10:59 Respiratory Rate 16 07/20/24 10:59 Blood Pressure 103/57 L 07/20/24 10:59 Pulse Oximetry 100 07/20/24 10:59 Temperature 37.0 C 05/10/25 10:59 Pulse Rate 74 07/20/24 10:59 Respiratory Rate 16 07/20/24 10:59 Blood Pressure 103/57 L 07/20/24 10:59 Pulse Oximetry 100 07/20/24 10:59 MDM - Abdominal Pain MDM Narrative Medical decision making narrative: PATIENT PRESENTS WITH LOWER ABDOMINAL PAIN, VITAL SIGNS ARE STABLE PHYSICAL EXAMINATION CONSISTENT WITH DIFFUSE TENDERNESS MAINLY LOWER ABDOMEN WITH GUARDING AND REBOUND DIFFERENTIAL DIAGNOSIS INCLUDE ACUTE APPENDICITIS, CHOLECYSTITIS, OVARIAN CYST RUPTURE, CONSTIPATION, DIVERTICULITIS, URINARY TRACT INFECTION. BLOOD WORKUP TODAY INCLUDES CBC, CMP, LIPASE SHOWED WBC 12.4, OTHERWISE INSIGNIFICANT URINALYSIS SHOWED 1+ LEUKOCYTE ESTRACE, 11-[address] ABDOMEN AND PELVIS WITH IV CONTRAST SHOWED NONSPECIFIC SMALL AMOUNT OF COMPLEX ASCITES, POTENTIAL HEMOPERITONEUM IN THE CUL-DE-SAC, 6.4 CM LEFT ADNEXAL CYST PELVIC ULTRASOUND SHOWED SHOWED LEFT OVARIAN CYST HIGH LIKELY HEMORRHAGIC DISCHARGED HOME ON ANTI INFLAMMATORY MEDICINE DISCUSSED WITH DR. HANNAH. THE PT WAS DISCHARGED TO HOME.THE PT,S CONDITION UPON DISCHARGE WAS FAIR,EDUCATION WAS PROVIDED TO THE PT IN REFERENCE TO THE FINAL IMPRESSION,DISCHARGE STUDY RESULTS,TREATMENT,PROGNOSIS AND NEED FOR FOLLOW UP . Differential Diagnosis Differential diagnosis: Likely other ( ABOVE) Medical Records Attestation: I reviewed the patient's medical records. Lab Data Attestation: I reviewed the patient's lab results. 07/20/24 11:15 07/20/24 11:15 Labs: Lab Results 07/20/24 07/20/24 Range/Units 11:15 11:20 WBC 12.4 H (4.5-10.0) K/mm3 RBC 4.24 (4.2-5.4) M/mm3 Hgb 13.0 (12.0-15.0) g/dL Hct 39.3 (37.0-47.0) % MCV 92.7 (80-100) fl MCH 30.7 (26-34) pg MCHC 33.1 (32-36) g/dl RDW 11.8 (11.5-14.5) % Plt Count 308 (150-375) k/mm3 MPV 9.5 (7.4-10.4) fl Immature Gran % (Auto) 0.6 H (0-0.5) % Neut % (Auto) 78.0 H (45.5-73.1) % Lymph % (Auto) 11.4 L (18.3-44.2) % [place] % (Auto) 8.1 (2.6-8.5) % Eos % (Auto) 1.4 (0-4.4) % Baso % (Auto) 0.5 (0.2-1.2) % Lymph # (Auto) 1.42 (0.9-3.2) K/mm3 [place] # (Auto) 1.0 H (0.1-0.6) K/mm3 Eos # (Auto) 0.2 (0-0.3) K/mm3 Baso # (Auto) 0.1 (0.0-0.1) K/mm3 Abs Immat Gran (auto) 0.07 H (0.00-0.031) K/mm3 Absolute Neuts (auto) 9.7 H (1.3-6.7) K/mm3 Absolute Nucleated RBC 0.000 (0.0-0.012) K/mm3 Nucleated RBC % 0.0 (0.0-0.2) % Sodium 136 L (137-145) mmol/L Potassium 3.4 (3.4-5.0) mmol/L Chloride 102 (98-107) mmol/L Carbon Dioxide 23 (22-30) mmol/L Anion Gap 11 (4-12) mmol/L BUN 12 (7-17) mg/dL Creatinine 0.76 (0.7-1.0) mg/dL Estim Creat Clear Calc 79 ml/min Estimated GFR > 60 (59 - ) Glucose 95 (65-110) mg/dL Calcium 9.1 (8.4-10.2) mg/dL Total Bilirubin 1.0 (0.2-1.3) mg/dL AST 23 (14-36) U/L ALT 15 (6-35) U/L Alkaline Phosphatase 49 (38-126) U/L Total Protein 8.0 (6.3-8.2) g/dL Albumin 4.8 (3.5-5.1) g/dL Lipase 55 (23-300) U/L Urine Color Yellow (Yellow) Urine Appearance Clear (Clear) Urine pH 6.5 (5.0-9.0) Ur Specific [place] 1.018 (1.001-1.035) Urine Protein Negative (Negative) mg/dL Urine Glucose (UA) Negative (Negative) mg/dL Urine Ketones 1+ H (Negative) mg/dL Ur Blood (Man) Negative (Negative) Urine Nitrate Negative (Negative) Urine Bilirubin Negative (Negative) Urine Urobilinogen 0.2 (<2.0) mg/dL Leukocyte Esterase Rfl 1+ H (Negative) HELENA/UL Urine RBC 0-2 (0-2) /hpf Urine WBC 11-20 H (0-3) /hpf Ur Squamous Epith Cells Occasional (Few) /hpf Urine Bacteria Rare /hpf Urine Casts 0-2 POC Urine HCG, Qual Negative (Negative) Imaging Data Radiologist's impression: ITS Impressions Abdomen/Pelvis CT 07/20/24 11:58 IMPRESSION: 1. Nonspecific small amount of complex ascites, potential pneumoperitoneum in the cul-de-sac. 2. 6.4 similar left adnexal cyst. Pelvis Ultrasound 07/20/24 13:26 IMPRESSION: 1. Complex 5.7 cm likely likely hemorrhagic cyst in the left ovary. Consider 08/18/2011 week follow-up ultrasound to document resolution. 2. Small amount of anechoic free fluid in the cul-de-sac and about the left adnexa. Critical Care Time Critical Care Time Critical Care Time: No Discharge Plan Discharge Clinical Impression: Complex cyst of left ovary Patient Disposition: Home Condition: Stable Instructions: Ovarian Cyst (ED) Additional Instructions: RETURN IF SYMPTOMS ARE WORSENING , CALL YOUR FAMILY PHYSICIAN FOR APPOINTMENT, TAKE TYLENOL 650 AND OR IBUPROFEN 600 NEEDED EVERY 6 HOURS FOR ACHES AND PAIN, CONTINUE HOME MEDICATIONS. Patient Language: Marshallese Prescriptions: No Action oxycodone-acetaminophen 5-325 mg tablet 1 tablet PO Q4H PRN (Reason: pain) Qty: 14 0RF Follow-up/Referrals: Audi Hannah MD [Physician] - 07/22/24 PHYSICIAN NOT ON STAFF,NONSTAFF [Primary Care Provider] -
[2024-07-20 11:33] LABS: Add Urine Microscopic? YES; Appearance Urine Clear (Clear); Bacteria Urine Rare /hpf; Bilirubin Urine Negative (Negative); Blood Urine Negative (Negative); Color Urine Yellow (Yellow); Glucose Urine UA Negative (Negative); Ketones Urine 1+ mg/dL (Negative); Leukocyte Esterase Ur 1+ LEU/UL (Negative); Nitrate Urine Negative (Negative); Non Pathogenic Casts 0-2; Protein Urine Negative (Negative); RBC Urine 0-2 /hpf (0-2); Specific Grav Ur 1.018 (1.001-1.035); Squamous Epithelial Cell Urine Occasional /hpf (Few); Urobilinogen Urine 0.2 mg/dL (<2.0); pH Urine 6.5 (5.0-9.0)
[2024-07-20 11:39] LABS: Alanine Aminotransferase 15 U/L (6-35); Albumin Level 4.8 g/dL (3.5-5.1); Alkaline Phosphatase 49 U/L (38-126); Anion Gap 11 mmol/L (4-12); Aspartate Amino Transferase 23 U/L (14-36); Blood Urea Nitrogen 12 mg/dL (7-17); Calcium 9.1 mg/dL (8.4-10.2); Carbon Dioxide 23 mmol/L (22-30); Chloride 102 mmol/L (98-107); Estimated CRCL calculation 79 ml/min; Estimated Glomerular Filt Rate > 60; Glucose 95 mg/dL (65-110); Lipase 55 U/L (23-300); Potassium 3.4 mmol/L (3.4-5.0); Sodium 136 mmol/L (137-145)
--- OUTSIDE RECORDS SUMMARY | 2024-07-20 11:39 | XMS_ITS | Clinical Summary ---
Author Organization [facility] Address [address] [place] [address] Care Team Providers Care Pharmaceutical Salesperson Name Role Phone Unavailable Primary Care Provider Unavailabl e Source Comments [facility],non-owned Affiliates and Associated Physician Practices is amultiple site organization consisting of ambulatory clinics and hospital sitesin [place], [place], [place] and [place]. This disclosure is being madepursuant to the Care Everywhere program and may not contain all information available regarding this patient. 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
[2024-07-20] MEDS: SODIUM CHLORIDE 0.9% IV 1,000 ML 999 ML IV CONT (12:01)
[2024-07-20] MEDS: ONDANSETRON INJ 4 MG/2 ML VIAL IV PUSH (12:02)
[2024-07-20] MEDS: MORPHINE SULFATE (*CRX) 4 MG/ML INJ IV PUSH (12:02)
== END 2024-07-20 15:04 | disposition home or self-care (01) ==
PROVIDERS: Emergency Provider Emergency Medicine
DX: N83.292 Other ovarian cyst, left side (principal); F17.290 Nicotine dependence, other tobacco product, uncomplicated
CPT/HCPCS: 36415; 74177; 76856; 80053; 81001; 81025; 83690; 85025; 87086; 96361; 96374; 96375; 99284; J2270; J2405; J7030; Q9967